=== PATIENT | male | born 1950 | race Two or more races ===

== ENCOUNTER 2017-06-02 12:00 | Outpatient (CLI) | payer MEDICARE, OTHER | END 2017-06-02 23:59 | disposition home or self-care (01) | LOC: MSC 12:00 | PROVIDERS: ATTEND Anesthesiology | DX: M51.16 Intervertebral disc disorders with radiculopathy, lumbar region (principal); M47.27 Other spondylosis with radiculopathy, lumbosacral region; M54.5 Low back pain; G89.29 Other chronic pain ==

== ENCOUNTER 2023-02-03 09:40 | Outpatient (CLI) | payer MEDICARE, OTHER | END 2023-02-03 23:59 | disposition home or self-care (01) | LOC: MSC 09:40 | PROVIDERS: ATTEND Anesthesiology | DX: M47.27 Other spondylosis with radiculopathy, lumbosacral region (principal); M51.36 Other intervertebral disc degeneration, lumbar region; Z79.891 Long term (current) use of opiate analgesic; Z79.1 Long term (current) use of non-steroidal anti-inflammatories (NSAID) ==